=== PATIENT | male | born 1960 | race Caucasian/White ===

== ENCOUNTER 2016-08-26 14:12 | Emergency (ER) | payer OTHER ==
--- NOTE | 2016-08-26 14:38 | ED EKG INTERP ---
EKG Interpretation - EKG Time of EKG reading by physician:: 14:28 EKG Read and Signed by:: Norm Pearson EKG Interpretation (*Must complete 3 of following elements*): Normal Rate: 100 Rhythm: normal sinus rhythm Comments: normal ECG Attestation - Scribe Verification/Attestation Scribe:: Mihaela Romeo Acting as Scribe for:: Norm Pearson Scribe documention review:: This chart was documented by a scribe and accurately reflects the service the provider performed and the decisions made by the provider.
--- NOTE | 2016-08-26 14:43 | EKG Report ---
Test Performed on : 08/26/2016 2:28:14 PM Test Reason : anxiety Blood Pressure : / mmHG Vent. Rate : 100 BPM Atrial Rate : 100 BPM P-R Int : 146 ms QRS Dur : 074 ms QT Int : 352 ms P-R-T Axes : 096 087 089 degrees QTc Int : 454 ms Normal sinus rhythm. Normal ECG When compared with ECG of 31-MAY-2016 16:03, No significant change was found Unconfirmed Result
[2016-08-26] MEDS ORDERED: DUONEB (A & A) INH ONE (15:33)
[2016-08-26] MEDS ORDERED: ATIVAN PO ONE (15:34)
--- NOTE | 2016-08-26 15:43 | PROVIDER DOCUMENTATION ---
HPI-General Adult - General Source: patient - History of Present Illness -Gen Adult Nature of Presenting Problems: Pt is 56 y/o M presents to the ED with anxiety. Pt states he is out of his anxiety meds. Pt states mildly SOB. Location of Pain/Injury: reports: none Pain Radiation: reports: no radiation Quality of Pain: reports: none Onset/Duration: reports: just prior to arrival Timing: reports: still present, intermittent Context/Activities at Onset: reports: light activity Modifying Factors: improves with: nothing Associated Symptoms: reports: anxiety, shortness of breath. denies: arm pain, back/neck pain, chest pain, constipation, cough, diaphoresis, diarrhea, dizziness, EENT symptoms, fatigue, fever/chills, genitourinary problems, headaches, heartburn, joint pain, loss of appetite, malaise, muscle aches, sinus congestion/drainage, nausea, rash, seizure, sensory/motor loss, pain with inspiration, swelling/mass in abdomen, syncope, vomiting, weakness, trouble walking Similar Symptoms Previously?: Yes Recently seen or treated by another doctor?: No <Mihaela Romeo - Last Filed: 08/26/16 15:43> <Dereck Lang - Last Filed: 08/26/16 15:46> - General Chief Complaint: Request RX Stated Complaint: OUT OF MY ATIVAN Time Seen by Provider: 08/26/16 15:39 Allergies/Adverse Reactions: Patient Allergies Allergy/AdvReac Type Severity Reaction Status Date / Time Penicillins Allergy Severe ANAPHYLAXIS Verified 07/05/16 11:53 ceftriaxone sodium * Allergy Unknown Verified 07/05/16 11:53 [From Rocephin] Home Medications: Home Medication List Medication Instructions Recorded Confirmed Last Taken Type Clonidine [Catapres] 0.1 mg PO BID 07/14/15 01/11/16 07/13/15 22:00 History Budesonide/Formoterol Fumarate 10.2 gm IH DAILY 09/05/15 01/11/16 11/03/15 History [Symbicort 160-4.5 Mcg Inhaler] Hydrocodone/APAP 10 mg/325 mg 1 tab PO BID 09/05/15 01/11/16 Unknown History [[place]-10] Omeprazole [Prilosec] 20 mg PO DAILY 09/05/15 01/11/16 Unknown History Albuterol 2.5MG/Ipratrop 0.5MG 3 ml INH RTQ4H #0 neb 12/20/15 01/11/16 Unknown Rx [Duoneb (A & A)] Alprazolam [Xanax] 1 mg PO BID PRN PRN #60 tablet 12/20/15 01/11/16 Unknown Rx Pantoprazole [Protonix] 40 mg PO DAILY@0700 #30 tablet 12/25/15 01/11/16 Unknown Rx Polyethylene Glycol 3350 [Miralax] 255 gm PO DAILY #1 powder 02/16/16 Unknown Rx Lorazepam [Ativan] 1 mg PO QHS #30 tablet 05/31/16 Unknown Rx Lorazepam [Ativan] 0.5 mg PO BID #30 tablet 07/05/16 Unknown Rx Buspirone [Buspar] 7.5 mg PO BID #30 tablet 08/26/16 Unknown Rx Review of Systems - Adult - REVIEW OF SYSTEMS - ADULT Constitutional: reports: no symptoms reported Eyes: reports: no symptoms reported Ears, Nose, Mouth & Throat: reports: no symptoms reported Cardiovascular: reports: irregular heart rate (tachy). denies: chest pain, heart murmur Respiratory: reports: shortness of breath. denies: cough, wheezing Gastrointestinal: reports: no symptoms reported Genitourinary: reports: no symptoms reported Musculoskeletal: reports: no symptoms reported Integumentary: reports: no symptoms reported Neurological: reports: no symptoms reported Psychiatric: reports: anxiety. denies: depression, suicidal thoughts Endocrine: reports: no symptoms reported Hematologic/Lymphatic: reports: no symptoms reported Allergic/Immunologic: reports: no symptoms reported All Other Systems: Reviewed and Negative <Mihaela Romeo - Last Filed: 08/26/16 15:43> Past History - Adult - PAST MEDICAL HISTORY-ADULT Review of Records: reports: Nursing Assessment Review, Medications Reviewed, Social history reviewed & non-contributory. Major Childhood Illnesses: reports: denies history Cardiovascular: reports: A-Fib, HTN Respiratory: reports: COPD (emphysema) Gastrointestinal: reports: other (hernia) Obstetrical/Gynecological: reports: denies history Genitourinary: reports: denies history Musculoskeletal: reports: chronic pain Neurological: reports: denies history Psychiatric: reports: anxiety, depression Endocrine/Immune: reports: denies history Other Conditions: reports: denies history - PRIOR SURGERIES/PROCEDURES Surgical/Procedure History: reports: hernia repair - IMMUNIZATION STATUS Childhood Immunizations: See Nurse Assessment Flu Vaccine: See Nurse Assessment - FAMILY HISTORY Family History: reviewed, not pertinent - SOCIAL HISTORY Smoking: quit less than 1 year, cigarettes Substance Use: denies Living Situation: family <Mihaela Romeo - Last Filed: 08/26/16 15:43> Physical Exam-General - PHYSICAL EXAM-ADULT Initial Vital Signs Reviewed: Yes - CONSTITUTIONAL General Appearance: appears well, alert, no apparent distress, anxious - EYES Eyes: PERRL/EOMI, pink conjunctivae, fundi clear, no AV nicking - HEAD, EARS, NOSE, MOUTH & THROAT HENMT: normocephalic/atraumatic, moist mucous membranes, normal ENT inspection, TMs normal, pharynx normal - NECK Neck: non-tender, full range of motion, supple, normal inspection - RESPIRATORY Respiratory: chest non-tender, lungs clear, normal breath sounds, no pleuratic chest pain, no respiratory distress, no accessory muscle use - CARDIOVASCULAR Cardiovascular: normal peripheral pulses, no edema, no gallop, no JVD, no murmur , tachycardia - GASTROINTESTINAL (ABDOMEN) Abdominal Exam: normal bowel sounds, non tender, soft, no organomegaly, hernia - LYMPHATIC Lymphatic: no adenopathy - MUSCULOSKELETAL Back Exam: normal inspection, no CVA tenderness, no vertebral tenderness Extremity: normal range of motion, non-tender, normal gait, normal inspection, no pedal edema, no calf tenderness - SKIN Integumentary: normal color, normal turgor, warm/dry - NEUROLOGIC Neurologic: grossly normal - PSYCHIATRIC Psych/Mental Status: normal mood/affect, oriented x 3 <Mihaela Romeo - Last Filed: 08/26/16 15:43> Progress - PLAN OF CARE/RESULTS Progress/Plan/Lab Results: Laboratory Tests 08/26/16 08/26/16 14:30 14:30 Creatine Kinase 139 Troponin T < 0.010 Orders Category Date Time Status CK PROFILE [SP CHEM] Stat Lab 08/26/16 14:30 Completed TROPONIN T Stat Lab 08/26/16 14:30 Completed Albuterol 2.5MG/Ipratrop 0.5MG [Duoneb (A & A)] Med 08/26/16 15:33 Discontinued 3 ml INH NOW ONE Lorazepam [Ativan] Med 08/26/16 15:34 Discontinued 1 mg PO NOW ONE Aerosol Treatments Routine Oth 08/26/16 15:33 Active Aerosol Treatments Stat Oth 08/26/16 15:33 Active EKG [EKG] Stat Ther 08/26/16 14:13 Draft Vital Signs - 24 hr 08/26/16 14:13 Temperature 97.8 F Pulse Rate 104 H Respiratory 21 Rate Blood Pressure 115/071 O2 Sat by Pulse 95 Oximetry <Mihaela Romeo - Last Filed: 08/26/16 15:43> Departure <Mihaela Romeo - Last Filed: 08/26/16 15:43> - Departure Time of Disposition Order: 15:45 Certified Medical Emergency: Emergent <Dereck Lang - Last Filed: 08/26/16 15:46> - Departure DIAGNOSIS: Anxiety about health Disposition: HOME 01 Condition: Good Additional Instructions: Take medication as prescribed. Follow up with your primary care provider. ED Follow Up Instructions: You have been treated by a care provider in the Emergency Department. These instructions are being provided to you so you can have an understanding of how to care for yourself upon discharge. Upon discharge from the Emergency Department, you are responsible for making arrangements for follow-up care by a physician of your choice. Take all prescribed medications as directed. Return to the Emergency Department immediately for any new or worsening symptoms. You may call the Physician Referral phone number at [phone] to obtain a list of Physicians who are taking new patients. Prescriptions: Buspirone [Buspar] 7.5 mg PO BID #30 tablet Referrals: None,PCP [Primary Care Provider] - Attestation - Scribe Verification/Attestation Scribe:: Mihaela Romeo Acting as Scribe for:: Dereck Lang Scribe documention review:: This chart was documented by a scribe and accurately reflects the service the provider performed and the decisions made by the provider. <Mihaela Romeo - Last Filed: 08/26/16 15:43> - Physician/ MARIA A Attestation Patient care was provided by Advanced Practice Provider:: Yes Advanced Practice Provider:: Dereck Lang Advanced Practice Provider documentation review:: The Mid-level provider documentation, treatment plan and medical decision making was reviewed by the physician who agrees with all treatment and medical decision making by the MLP. <Dereck Lang - Last Filed: 08/26/16 15:46> Physician Attestation
[2016-08-26 16:16] VITALS: BP 127/080
== END 2016-08-26 16:15 | disposition home or self-care (01) ==
LOC: P.ED 14:12
DX: F41.8 Other specified anxiety disorders (principal); R06.02 Shortness of breath; R00.0 Tachycardia, unspecified; I10 Essential (primary) hypertension; J43.9 Emphysema, unspecified; G89.29 Other chronic pain; Z79.899 Other long term (current) drug therapy; Z87.891 Personal history of nicotine dependence
CPT/HCPCS: 82550; 84484; 93005; 94640

== ENCOUNTER 2016-08-29 21:59 | Observation (INO) | payer OTHER ==
[2016-08-29] MEDS ORDERED: NS 1,000 ML ONE (22:30)
[2016-08-29] MEDS ORDERED: NS 1,000 ML IV ONE (22:41)
[2016-08-29 22:42] LABS: MANUAL DIFF NEEDED? NO
[2016-08-29 22:48] LABS: BASO% 0.5 % (0.0-0.8); EOS# 0.45 X1000 (0.0-0.7); EOS% 5.2 % (0.0-10.0); HEMATOCRIT 39.7 % (42.0-52.0); HEMOGLOBIN 12.8 g/dL (14.0-18.0); IMM GRAN# 0.07 X1000 (0.0-0.04); IMM GRAN% 0.8 % (0.0-0.5); LYMPH# 3.66 X1000 (1.2-3.4); LYMPH% 42.2 % (20.5-51.1); MCH 29.6 PG (27-31); MCHC 32.2 g/dL (33-37); MCV 91.9 FL (81-99); MONO% 10.4 % (1.7-9.3); MPV 10.3 FL (7.4-10.4); NEUT% 40.9 % (42.2-75.2); PLT 205 X1000 (130-400); RBC 4.32 XMIL (4.7-6.1)
[2016-08-29 23:10] LABS: PROTIME 13.5 Seconds (12.1-15.5); PTT PL 27.5 Seconds (22.6-43.9)
[2016-08-29 23:17] LABS: AGAP 14; ALBUMIN 3.2 g/dL (3.5-5.0); ALKALINE PHOSPHATASE 88 U/L (32-122); BUN 7 mg/dL (8-22); CALCIUM 8.4 mg/dL (8.8-10.2); CHLORIDE 103 mmol/L (98-107); CK PROFILE 109 U/L (24-204); COSMO 273; GOT 30 U/L (10-34); GPT 19 U/L (10-44); POTASSIUM 3.6 mmol/L (3.5-5.1); SODIUM 137 mmol/L (136-145); TCO2 21 mmol/L (25-35); TOTAL PROTEIN 6.3 g/dL (6.3-8.3)
--- NOTE | 2016-08-29 23:52 | PROVIDER DOCUMENTATION ---
HPI-Respiratory General - General Chief Complaint: Altered Mental Status Stated Complaint: SOB, AMS, HERE FOR SS PLACEMENT Time Seen by Provider: 08/29/16 22:05 Source: patient Allergies/Adverse Reactions: Patient Allergies Allergy/AdvReac Type Severity Reaction Status Date / Time Penicillins Allergy Severe ANAPHYLAXIS Verified 08/29/16 22:04 ceftriaxone sodium * Allergy Unknown Verified 08/29/16 22:04 [From Rocephin] Home Medications: Home Medication List Medication Instructions Recorded Confirmed Last Taken Type Clonidine [Catapres] 0.1 mg PO BID 07/14/15 08/29/16 08/27/16 History Budesonide/Formoterol Fumarate 10.2 gm IH DAILY 09/05/15 08/29/16 08/26/16 History [Symbicort 160-4.5 Mcg Inhaler] Hydrocodone/APAP 10 mg/325 mg 1 tab PO BID 09/05/15 08/29/16 08/27/16 History [[place]-10] Omeprazole [Prilosec] 20 mg PO DAILY 09/05/15 08/29/16 08/27/16 History Albuterol 2.5MG/Ipratrop 0.5MG 3 ml INH RTQ4H #0 neb 12/20/15 08/29/16 08/29/16 Rx [Duoneb (A & A)] Alprazolam [Xanax] 1 mg PO BID PRN PRN #60 tablet 12/20/15 08/29/16 08/26/16 Rx Lorazepam [Ativan] 1 mg PO QHS #30 tablet 05/31/16 08/29/16 08/27/16 Rx Prednisone 10 mg PO DAILY 08/29/16 08/29/16 08/15/16 History - History of Present Illness-Resp Nature of Presenting Problem: 56 year old M presents to the ED via EMS with a cc of shortness of breath and weakness. PT states "I don't know what happened. I remember calling 911, but that is it." Per EMS, living situations are unsanitary at best and at this time pts home is being condemned by authorities. [facility] has been contacted. Severity in ED: reports: mild Timing: reports: still present Cough Quality/Degree: reports: no cough Current Respiratory Medication Therapy: Initiated see nurses note Associated Symptoms: reports: shortness of breath Similar Symptoms Previously?: Yes Recently seen or treated by another doctor?: No Review of Systems - Adult - REVIEW OF SYSTEMS - ADULT Constitutional: denies: chills, fever Eyes: reports: no symptoms reported Ears, Nose, Mouth & Throat: reports: no symptoms reported Cardiovascular: denies: chest pain, palpitations Respiratory: reports: shortness of breath. denies: cough Gastrointestinal: denies: nausea, vomiting Genitourinary: reports: no symptoms reported Musculoskeletal: reports: muscle weakness. denies: muscle aches Integumentary: reports: no symptoms reported Neurological: reports: no symptoms reported Psychiatric: reports: no symptoms reported Endocrine: reports: no symptoms reported Hematologic/Lymphatic: reports: no symptoms reported Allergic/Immunologic: reports: no symptoms reported All Other Systems: Reviewed and Negative Past History - Adult - PAST MEDICAL HISTORY-ADULT Review of Records: reports: Nursing Assessment Review, Medications Reviewed Major Childhood Illnesses: reports: denies history Cardiovascular: reports: A-Fib, HTN Respiratory: reports: COPD (emphysema) Gastrointestinal: reports: other (hernia) Obstetrical/Gynecological: reports: denies history Genitourinary: reports: denies history Musculoskeletal: reports: chronic pain Neurological: reports: denies history Psychiatric: reports: anxiety, depression Endocrine/Immune: reports: denies history Other Conditions: reports: denies history - PRIOR SURGERIES/PROCEDURES Surgical/Procedure History: reports: hernia repair - IMMUNIZATION STATUS Childhood Immunizations: See Nurse Assessment Flu Vaccine: See Nurse Assessment - FAMILY HISTORY Family History: reviewed, not pertinent - SOCIAL HISTORY Smoking: non-smoker Substance Use: none/never Alcohol Use Frequency: never Physical Exam-General - PHYSICAL EXAM-ADULT Initial Vital Signs Reviewed: Yes - CONSTITUTIONAL General Appearance: appears well, alert, no apparent distress - RESPIRATORY Respiratory: chest non-tender, lungs clear, normal breath sounds - CARDIOVASCULAR Cardiovascular: normal peripheral pulses, regular rate, rhythm, no edema - GASTROINTESTINAL (ABDOMEN) Abdominal Exam: hernia (large ABD wall hernia) - PSYCHIATRIC Psych/Mental Status: oriented x 3 Progress - PLAN OF CARE/RESULTS Progress/Plan/Lab Results: plan of care: imaging, labs, fluids, EKG Orders Category Date Time Status Cardiac Monitoring DIRECTED Care 08/29/16 22:06 Active Oxygen Therapy- ED Nursing DIRECTED Care 08/29/16 22:06 Active Saline Loc NOW Care 03/09/17 22:06 Active CHEST-2 VIEWS [RAD] Stat Exams 08/29/16 22:06 Taken HEAD W/O CONTRAST [CT] Stat Exams 08/29/16 22:07 Taken CBC WITH ELECTRONIC DIFF [HEME] Stat Lab 08/29/16 22:35 Completed CK PROFILE [SP CHEM] Stat Lab 08/29/16 22:35 Completed COMPREHENSIVE METABOLIC PANEL [CHEM] Stat Lab 08/29/16 22:35 Completed ETOH [ALCOHOL BLOOD] Stat Lab 08/29/16 22:35 Completed MAGNESIUM [CHEM] Stat Lab 08/29/16 22:35 Completed PRO B-NATRIURETIC PEPTIDE Stat Lab 08/29/16 22:[address]IME WITH INR [address] [COAG] Stat Lab 08/29/16 22:[address] [COAG] Stat Lab 08/29/16 22:35 Completed TROPONIN T Stat Lab 08/29/16 22:35 Completed 0.9% Sodium Chloride Inj [Ns] 1,000 ml Med 08/29/16 22:30 Discontinued .ROUTE As Directed 0.9% Sodium Chloride Inj [Ns] 1,000 ml Med 08/29/16 22:41 Discontinued IV 999 mls/hr EKG [EKG] Stat Ther 08/29/16 22:06 Ordered Laboratory Tests 08/29/16 08/29/16 08/29/16 22:35 22:35 22:35 WBC RBC Hgb Hct MCV MCH MCHC RDW Std Deviation Plt Count MPV Immature Gran % (Auto) Neut % (Auto) Lymph % (Auto) [place] % (Auto) Eos % (Auto) Baso % (Auto) Immature Gran # (Auto) Neut # (Auto) Lymph # (Auto) [place] # (Auto) Eos # (Auto) Baso # (Auto) PT INR APTT (Factor Assay) Sodium 137 Potassium 3.6 Chloride 103 Carbon Dioxide 21 L Anion Gap 14 BUN 7 L Creatinine 0.9 Estimated GFR/1.73 m2 > 60 BUN/Creatinine Ratio 8 Glucose 117 H Calculated Osmolality 273 Calcium 8.4 L Magnesium 2.0 Total Bilirubin 0.20 AST 30 ALT 19 Alkaline Phosphatase 88 Creatine Kinase 109 Troponin T < 0.010 [id number] Pept 136 Total Protein 6.3 Albumin 3.2 L Globulin 3.0 Albumin/Globulin Ratio 1.0 Plasma/Serum Ethyl Alc 03/09/17 03/09/17 03/09/17 22:35 22:35 22:35 WBC 8.68 RBC 4.32 L Hgb 12.8 L Hct 39.7 L MCV 91.9 MCH 29.6 MCHC 32.2 L RDW Std Deviation 14.6 H Plt Count 205 MPV 10.3 Immature Gran % (Auto) 0.8 H Neut % (Auto) 40.9 L Lymph % (Auto) 42.2 [place] % (Auto) 10.4 H Eos % (Auto) 5.2 Baso % (Auto) 0.5 Immature Gran # (Auto) 0.07 H Neut # (Auto) 3.56 Lymph # (Auto) 3.66 H [place] # (Auto) 0.90 H Eos # (Auto) 0.45 Baso # (Auto) 0.04 PT 13.5 INR 1.00 APTT (Factor Assay) 27.5 Sodium Potassium Chloride Carbon Dioxide Anion Gap BUN Creatinine Estimated GFR/1.73 m2 BUN/Creatinine Ratio Glucose Calculated Osmolality Calcium Magnesium Total Bilirubin AST ALT Alkaline Phosphatase Creatine Kinase Troponin T [id number] Pept Total Protein Albumin Globulin Albumin/Globulin Ratio Plasma/Serum Ethyl Alc 207 H Vital Signs - 24 hr 08/29/16 08/29/16 22:00 23:52 Temperature 97 F L Pulse Rate 100 H 99 H Respiratory 16 20 Rate Blood Pressure 126/66 122/95 O2 Sat by Pulse 96 98 Oximetry Pt given results. Pt will be admitted to the hospitalist group. PT in agreement with plan of care. - EKG 1 Time of EKG reading by physician:: 22:37 EKG Read and Signed by:: Shreyas Solis EKG Interpretation (*Must complete 3 of following elements*): Normal Rate: 101 Rhythm: sinus tachycardia Maria Stein: normal - XRAY 1 XRAY Study: Chest Impression: Abnormal XRAY Interpretation: chronic interstital disease, nothing acute: Dr. Solis- ER MD - CT/MRI 1 CT Study: Head Impression: Normal CT Results: no blood, old right cerebellar infarct: Dr. Tuttle- radiologist Departure - Departure Condition: Serious Referrals: Javier Bustillos [Primary Care Provider] - Attestation - Scribe Verification/Attestation Scribe:: Shira Zheng Acting as Scribe for:: Shreyas Solis Scribe documention review:: This chart was documented by a scribe and accurately reflects the service the provider performed and the decisions made by the provider. Physician Attestation - Physician Attestation I, the provider, attest to the following statement:: Shreyas Solis Physician documentation Attestation:: This documentation recorded by the scribe accurately reflects the service I personally performed and the decisions made by me.
[2016-08-30] MEDS ORDERED: XANAX PO ONE (01:03)
[2016-08-30] MEDS ORDERED: ZOFRAN IV PRN (01:11)
[2016-08-30] MEDS: NS 1,000 ML IV SCH ×3 (01:35→17:51)
[2016-08-30] MEDS ORDERED: DUONEB (A & A) INH ONE ×2 (02:11→05:47)
--- NOTE | 2016-08-30 05:43 | EKG Report ---
Test Performed on : 08/29/2016 10:37:01 PM Test Reason : CHEST PAIN Blood Pressure : / mmHG Vent. Rate : 101 BPM Atrial Rate : 101 BPM P-R Int : 164 ms QRS Dur : 080 ms QT Int : 350 ms P-R-T Axes : 080 075 079 degrees QTc Int : 453 ms Sinus tachycardia. Otherwise normal ECG When compared with ECG of 26-AUG-2016 14:28, (Unconfirmed) No significant change was found Unconfirmed Result
[2016-08-30] MEDS ORDERED: DUONEB (A & A) ONE (05:51)
--- NOTE | 2016-08-30 07:27 | Diag Imaging Result Document ---
PROCEDURE NAME: HEAD W/O CONTRAST - 08/29/2016 CT BRAIN WITHOUT: COMPARISON: 12/25/2015. FINDINGS: No parenchymal hemorrhage. No epidural or subdural hematoma. No subarachnoid hemorrhage. No mass identified on this noncontrasted exam. No hydrocephalus. Old right cerebellar infarct. This was present on the prior exam. No sinus opacification although there is a small amount of mucous inferiorly in the right maxillary sinus. IMPRESSION: 1. No hemorrhage. 2. Old right cerebellar infarct. A preliminary report was given at 11:03 p.m..
--- NOTE | 2016-08-30 07:48 | Diag Imaging Result Document ---
PROCEDURE NAME: CHEST-2 VIEWS - 08/29/2016 TWO VIEWS OF THE CHEST: FINDINGS: There is fibrosis in the right costophrenic sulcus. There has been no significant change in the appearance of the chest since 07/05/2016. The heart size and pulmonary vascularity remain within normal limits. IMPRESSION: No acute disease.
[2016-08-30] MEDS ORDERED: XANAX PO PRN (12:09)
[2016-08-30] MEDS ORDERED: DUONEB (A & A) INH PRN (12:13)
[2016-08-30] MEDS: SOLU-MEDROL IV SCH ×2 (13:04→22:17)
[2016-08-30] MEDS: DUONEB (A & A) INH SCH ×3 (14:57→23:00)
[2016-08-30] MEDS: NORCO-10 PO SCH ×2 (16:09→22:18)
--- NOTE | 2016-08-30 18:24 | HISTORY AND PHYSICAL ---
PRIMARY CARE PHYSICIAN: Dr. Javier Bustillos. CHIEF COMPLAINT: Altered mental status. HISTORY OF PRESENT ILLNESS: This is a 56-year-old male, who is well known to our facility after having multiple admissions with a history of atrial fibrillation, hypertension, COPD, chronic pain, alcohol abuse, who presented to the emergency room stating, "I don't know what happened, I remember calling 911, but that's it." The patient was found to have alcohol intoxication with a blood alcohol of 207. The patient at present continues to be confused, answering questions with flight of ideas, so the history is being taken from the chart. Evidently EMS stated that the patient's living situation was unsanitary and that his home is in the process of being condemned by authorities. [facility] was contacted in the emergency room. CT of the head revealed no hemorrhage, old right cerebellar infarct. Chest x-ray revealed no acute disease. In the emergency room he was given a liter of fluid, Xanax, DuoNebs, and he is being admitted for further evaluation and treatment. PAST MEDICAL HISTORY: COPD, atrial fibrillation, hypertension, hernia, chronic pain, noncompliance, alcohol use. PAST SURGICAL HISTORY: Hernia repair. Right leg surgery. SOCIAL HISTORY: He states he quit smoking about a year and a half ago. He does use alcohol, and he denies illicit drug use. ALLERGIES: According to the chart and past history, penicillin which causes anaphylaxis, and Rocephin with unknown reaction. HOME MEDICATIONS: We are unsure exactly what the patient is taking. He does know that he takes Ativan. Of note, he was given Ativan in the emergency room earlier in the week. DIAGNOSTIC DATA: Chest x-ray revealed no acute disease, with fibrosis in the right costophrenic sulcus. CT of the head revealed no acute processes. WBC was 8.6, with hemoglobin 12.8, hematocrit 39.7, and platelets of 205,000. Sodium 137, potassium 3.6, BUN 7, creatinine 0.9, with a glucose of 117. Blood alcohol was 207. ASSESSMENT AND PLAN: 1. Altered mental status/metabolic encephalopathy. This is most likely due to his alcohol use as his blood alcohol was 207. Through the emergency room visit he did become a little more lucid and he is answering questions a little more appropriate although he does veer off at the end of a sentence. 2. Chronic obstructive pulmonary disease. 3. Hypertension. 4. History of atrial fibrillation. 5. Anxiety. 6. Deep venous thrombosis and gastrointestinal prophylaxis. He will be admitted to the hospital. He will be placed on telemetry. We will give DuoNebs q.4 hours and q.2 p.r.n. with steroids to taper. We will give IV hydration. His Symbicort will continue. The patient has been on long-term benzodiazepines, as he does have alcohol in it, and he does state that he has been drinking lately, will go ahead and put him on Ativan p.o. twice a day with IV p.r.n. in case he starts going through alcohol withdrawal or DTs. We will repeat his labs in the morning and replete as necessary. It seems there is a social issue of according to EMS the patient's home is being condemned. [facility] has been contacted according to the chart at first admission so we will be working with [facility] regarding the patient's care. Dictated by ALEC Aiken for Glenn Lowe MD
[2016-08-30] MEDS: ATIVAN PO SCH (22:18)
[2016-08-30] MEDS: CATAPRES PO SCH (22:19)
[2016-08-31] MEDS: DUONEB (A & A) INH SCH ×6 (02:43→23:20)
[2016-08-31] MEDS: NS 1,000 ML IV SCH ×3 (03:26→20:47)
[2016-08-31] MEDS: SOLU-MEDROL IV SCH ×3 (03:26→20:50)
[2016-08-31] MEDS: PRILOSEC PO SCH (06:06)
--- NOTE | 2016-08-31 06:31 | EKG Report ---
Test Performed on : 08/30/2016 11:48:34 PM Test Reason : Patient c/o chest pain Blood Pressure : / mmHG Vent. Rate : 072 BPM Atrial Rate : 072 BPM P-R Int : 158 ms QRS Dur : 076 ms QT Int : 388 ms P-R-T Axes : 077 078 081 degrees QTc Int : 424 ms Normal sinus rhythm. Normal ECG When compared with ECG of 29-AUG-2016 22:37, (Unconfirmed) No significant change was found Unconfirmed Result
[2016-08-31] MEDS: SYMBICORT 160/4.5 MICROGM INHALER INH SCH (07:32)
[2016-08-31] MEDS ORDERED: PRILOSEC PO SCH (09:00)
[2016-08-31] MEDS: NORCO-10 PO SCH ×2 (10:34→20:47)
[2016-08-31] MEDS: CATAPRES PO SCH ×2 (10:35→20:47)
--- NOTE | 2016-08-31 11:33 | PROGRESS NOTE ---
DATE: 08/31/2016 SUBJECTIVE: Patient without new complaints today. He states he wants to go back to his house. OBJECTIVE: Vital Signs: On physical, temp 97, pulse 63, respiratory rate 18, and BP 164/65. General: Patient is well developed, well nourished. He is currently in no real respiratory distress. He is awake, alert. Neck: Supple. CV: Regular rate. Chest: Relatively clear. Abdomen: Soft. Extremities: Moves all extremities. Neurologic: No changes. Skin: Warm and dry. No rashes. LABS: No new labs. ASSESSMENT: 1. Altered mental status, resolved. 2. Shortness of breath, resolved. 3. Poor social situation. Patient unfortunately has some damage to his house and has nowhere currently to go back too. PLAN: We will continue to ask school social worker, [facility] to assist in discharge planning. Continue his home medications. Further orders as needed.
[2016-08-31] MEDS: ATIVAN PO SCH (20:46)
[2016-09-01] MEDS: ATIVAN PO PRN ×2 (01:04→08:16)
[2016-09-01] MEDS: DUONEB (A & A) INH SCH ×3 (03:21→11:29)
[2016-09-01] MEDS: SOLU-MEDROL IV SCH (04:56)
[2016-09-01] MEDS: PRILOSEC PO SCH (06:06)
[2016-09-01] MEDS: NS 1,000 ML IV SCH (06:06)
[2016-09-01 06:18] VITALS: BP 172/76
[2016-09-01 07:09] LABS: AGAP 8; BUN 13 mg/dL (8-22); CALCIUM 8.9 mg/dL (8.8-10.2); CHLORIDE 107 mmol/L (98-107); COSMO 285; POTASSIUM 4.3 mmol/L (3.5-5.1); SODIUM 142 mmol/L (136-145); TCO2 26 mmol/L (25-35)
[2016-09-01] MEDS: SYMBICORT 160/4.5 MICROGM INHALER INH SCH (07:55)
[2016-09-01] MEDS: CATAPRES PO SCH (08:16)
[2016-09-01] MEDS: NORCO-10 PO SCH (08:16)
--- NOTE | 2016-09-01 11:02 | PROGRESS NOTE ---
DATE: 09/01/2016 SUBJECTIVE: The patient is a little agitated. He wants to go back to his house. He denies any physical complaints. OBJECTIVE: Vital Signs: Blood pressure is 172/76 with a heart rate of 78, respirations are 18, temperature is 98.2 degrees oral with room air saturations are 97 to 98%. Cardiovascular: Regular rate and rhythm. S1 and S2 appreciated. Pulmonary: Breath sounds with scattered wheezes noted throughout. No increased work of breathing noted. Gastrointestinal: Abdomen is soft, nontender, nondistended. Bowel sounds in all 4 quadrants. Extremities: No clubbing, cyanosis, or edema. Calves nontender. Pulses palpable x4. Neurologic: He is alert and oriented x3. Skin: Warm and dry. No rashes or lesions noted. ASSESSMENT: 1. Altered mental status, resolved. 2. Shortness of breath, resolved. 3. Poor social situation. Unfortunately, the patient's house is being condemned and the patient has no where to go. We will continue to ask social work job titles and DHR to assist in discharge planning. Otherwise, will continue his current regimen. Dictated by ALEC Aiken for Glenn Lowe MD
[2016-09-01] MEDS ORDERED: SOLU-MEDROL IV SCH (17:00)
[2016-09-01] MEDS ORDERED: ATIVAN PO SCH (21:00)
--- NOTE | 2016-09-02 02:32 | PROGRESS NOTE ---
DATE: 09/01/2016 ADDENDUM: The patient has informed the staff that his power of php software engineer said his home was "okay" and that he could go home. In review of the chart, there is a note that DHR is coming to interview the patient Friday and at that time they will assist us in placement. We have informed the patient of this. Dictated by ALEC Aiken for Glenn Lowe MD
--- NOTE | 2016-09-02 08:01 | DISCHARGE SUMMARY ---
ADMISSION DATE: 08/30/2016 DISCHARGE DATE: 09/01/2016 DIAGNOSES: 1. Altered mental status. 2. Metabolic encephalopathy resolved. 3. Shortness of breath resolved. 4. Poor social situation. 5. Alcohol intoxication. DIAGNOSTICS: 1. 08/29/2016 chest x-ray revealed no acute disease. 2. 08/29/2016 CT of the head. No hemorrhage. Old right cerebellar infarct. HOSPITAL COURSE: Mr. Arechiga presented to the emergency room with altered mental status stating that he was found to have a blood alcohol level of 207. He was given IV hydration, given Ativan and monitor for alcohol withdrawal. He did well. Within less than 24 hours he was back to his normal. Evidently it is reported that his house was being condemned by the city, and KANDIC[facility] was contacted from the emergency room and there was a correctional case records supervisor that was planning on coming out Friday morning to meet with Mr. Arechiga. He was aware of this and he was agreeable until this morning. He states he spoke to his power of insurance defense attorney. They said that his house was "okay for me to return back to", and he want to go home. We did inform him that we could not discharge him until he was evaluated by R and he had a safe place to return to. He once again called his power of insurance defense attorney who came to the hospital and Mr. Arechiga signed out against medical advice to go home. During the hospitalization we did continue his home medications. He was discharged on his home medications. HOME MEDICATIONS: 1. Prednisone 10 mg daily. 2. DuoNeb q.4 hours. 3. Symbicort 164.5 daily. 4. Catapres 0.1 b.i.d. 5. Prilosec 20 daily. 6. I think he did have some Ativan from an ER visit earlier in the week. PHYSICAL EXAMINATION: Cardiovascular: Regular rate and rhythm. S1 and S2 appreciated. Pulmonary: Breath sounds with scattered wheezes noted throughout. No increased work of breathing. Gastrointestinal: Abdomen is soft, nontender, nondistended. Bowel sounds in all 4 quadrants. Vital Signs: Blood pressure 172/76 with a heart rate of 78, respirations 18, temperature 98.2 degrees with a room air saturations 97 and 98%. DISCHARGED DIET: Healthy heart. DISCHARGE ACTIVITY: As tolerated. FOLLOWUP: 1. He was instructed to call his primary care physician, Dr. Cory Bustillos in the morning and make an appointment for follow up in the next 1-2 weeks, sooner if needed. He was instructed in the importance of alcohol cessation to which he stated he had no intention of stopping. He is being discharged home. 2. Again, Mr. Arechiga left against medical advice. He was told to continue his home medications. He was told to call Dr. Cory Bustillos in the morning for return appointment. He is also instructed to call Dr. Cory Bustillos for any medication refills he may need as he was given none. He was also instructed to return to the emergency room for shortness of breath, chest pain, palpitations or any concerns. Dictated by ALEC Aiken for Glenn Lowe MD
== END 2016-09-01 12:40 | disposition left against medical advice (07) ==
LOC: P.ED 21:59 → EDIPHOLD 08-30 01:47 → INTOOBSV 08-30 01:47 → P.EDIPHOLD 08-30 02:47 → P.MEDSURG 08-30 10:07
PROVIDERS: ATTEND Family Medicine
DX: F10.129 Alcohol abuse with intoxication, unspecified (principal); Y90.7 Blood alcohol level of 200-239 mg/100 ml; R41.82 Altered mental status, unspecified; I48.91 Unspecified atrial fibrillation; I10 Essential (primary) hypertension; J44.9 Chronic obstructive pulmonary disease, unspecified; G89.29 Other chronic pain; Z87.891 Personal history of nicotine dependence; G93.41 Metabolic encephalopathy; F41.9 Anxiety disorder, unspecified; R06.02 Shortness of breath; K43.9 Ventral hernia without obstruction or gangrene; Z60.8 Other problems related to social environment; Z79.51 Long term (current) use of inhaled steroids; Z79.899 Other long term (current) drug therapy; Z79.52 Long term (current) use of systemic steroids; Z79.891 Long term (current) use of opiate analgesic
CPT/HCPCS: 70450; 71020; 80048; 80053; 82550; 83735; 83880; 84484; 85025; 85610; 85730; 93005; 94640; 94761; 94799; 96360; 96361; G0480; J2930; J7030; 80320